=== PATIENT | female | born 1960 | race Hispanic/Latino ===

== ENCOUNTER 2017-09-11 06:33 | Day surgery (SDC) | payer OTHER ==
[2017-09-11 07:27] VITALS: BMI 31.8
[2017-09-11] MEDS ORDERED: Propofol 10 mg/ml Inj (20 ML) ONE ×2 (08:44→09:00)
[2017-09-11 14:36] VITALS: TEMP 98
[2017-09-11 14:48] VITALS: BP 132/66; PULSE 78; RESP 14; O2SAT 100
== END 2017-09-11 10:35 | disposition home or self-care (01) ==
LOC: C.ENDO 06:33
PROVIDERS: ATTEND Internal Medicine Gastroenterology
DX: K29.70 Gastritis, unspecified, without bleeding (principal); K29.80 Duodenitis without bleeding; K64.8 Other hemorrhoids
CPT/HCPCS: 43239; 45380; 88305; J2704; J3010

== ENCOUNTER 2017-10-14 08:33 | Day surgery (SDC) | payer OTHER ==
[2017-10-13 08:12] VITALS: BMI 24.5
[2017-10-14] MEDS ORDERED: Absorbable Gelatin Sponge Size 12-7 ONE (12:06)
[2017-10-14] MEDS ORDERED: Midazolam 2 MG/2 ML VIAL ONE (12:08)
[2017-10-14] MEDS ORDERED: Propofol 10 mg/ml Inj (20 ML) ONE (12:08)
--- NOTE | 2017-10-14 12:21 | CP.SDSHP ---
Same Day Surgery H & P - History Proposed Procedure: US guided liver biopsy Pre-Op Diagnosis: Autoimmune hepatitis - Allergies Allergies: Allergies No Known Allergies Allergy (Verified 09/11/17 07:23) - Physical Exam Vital Signs: Vital Signs 10/14/17 10:37 Temperature 97.8 F Pulse Rate 72 Respiratory 20 Rate Blood Pressure 109/75 O2 Sat by Pulse 100 Oximetry Mental Status: Alert & Oriented x3 - Impression Impression: PT with autoimmune hepatits refered for liver biopsy. Plan US guided liver biopsy. Pt. Evaluated Today:Candidate for Anesthesia & Procedure: Yes (ASA 3 Malampati 3) Short Stay Discharge - Short Stay Discharge Admitting Diagnosis/Reason for Visit: LIVER BIOPSY Disposition: HOME/ ROUTINE
--- NOTE | 2017-10-14 12:22 | PCM.SURG1 ---
Surgeon's Initial Post Op Note - Surgeon's Notes Surgeon: Mazin Montero MD Transportation Assistant: NONE Type of Anesthesia: IV Sedation Pre-Operative Diagnosis: Autoimmune hepatitis Operative Findings: LImited US showed an unremarkable left hepatic obe. Post-Operative Diagnosis: Autoimmune hepatitis Operation Performed: US guided liver biopsy Specimen/Specimens Removed: 18 g core x 3 Estimated Blood Loss: EBL {In ML}: 1 Blood Products Given: N/A Drains Used: No Drains Post-Op Condition: Good Date of Surgery/Procedure: 10/14/17 Time of Surgery/Procedure: 12:20
--- NOTE | 2017-10-14 12:48 | US ---
PROCEDURE: Date of procedure: 10/14/2017 Procedure: 1. Ultrasound-guided core liver biopsy, CPT 08896 2. Ultrasound guidance for biopsy, [id number] Medications: The patient is sedated by the anesthesiologist. HISTORY: Autoimmune hepatitis TECHNIQUE: Following informed consent and procedure time-out, the patient was placed supine on bed and limited ultrasound showed a normal appearing left hepatic lobe. After patient abdomen was prepped and draped in the usual sterile fashion and the skin was anesthetized with 2% lidocaine, an 18 gauge core needle was advanced percutaneously under direct ultrasound guidance into the left hepatic lobe. Upon confirmation of needle position, three 18 gauge core specimens were obtained and sent for routine pathology. The biopsy to tract was then embolized with Gelfoam. A post biopsy ultrasound showed no hematoma. A dressing was applied. IMPRESSION: Ultrasound-guided core biopsy left hepatic lobe. There were no immediate complications.
[2017-10-14 13:24] VITALS: TEMP 98.4; O2SAT 100
[2017-10-14 14:25] VITALS: BP 120/52; PULSE 74; RESP 15
--- NOTE | 2017-10-15 16:04 | CARD ---
APPROVED REPORT EKG Measurement Heart [id number] <Conclusion> Normal sinus rhythm Normal ECG
== END 2017-10-14 14:25 | disposition home or self-care (01) ==
LOC: C.SDS 08:33
PROVIDERS: ATTEND Radiology Vascular & Interventional Radiology
DX: K75.4 Autoimmune hepatitis (principal); K83.1 Obstruction of bile duct
CPT/HCPCS: 10022; 36415; 47000; 76942; 85610; 85730; 88307; 88313; 93005; J2250; J2704